=== PATIENT | male | born 1975 | race Caucasian/White ===

== ENCOUNTER 2019-10-09 09:54 | Emergency (ER) | payer OTHER ==
--- NOTE | 2019-10-09 09:59 | ERPHSYRPT ---
- History of Present Illness Time Seen by Provider: 10/09/19 09:59 Source: patient Exam Limitations: no limitations Physician History: This is a 44-year-old white male who has history of chronic back pain and presents with sudden onset of left flank pain that occurred this morning. The pain radiates down into his left groin. There is nausea but no vomiting. He has no diarrhea. He has no chest pain he has no shortness of breath. Timing/Duration: today Method of Injury: other Quality: aching (No injury) Back Pain Location: paraspinous muscles (Left flank) Severity of Pain-Max: moderate Severity of Pain-Current: moderate Modifying Factors: Improves With: nothing Associated Symptoms: nausea Previous symptoms: no prior history Allergies/Adverse Reactions: No Known Drug Allergies Allergy (Verified 10/09/19 10:05) Home Medications: Amphet Asp/Amphet/D-Amphet [Adderall 30 mg Tablet] 30 mg PO DAILY 10/09/19 [History] Atorvastatin Calcium [Lipitor 20MG Tablet] 20 mg PO DAILY 10/09/19 [History] Doxycycline Hyclate 50 mg PO DAILY 10/09/19 [History] Travel Risk - International Travel Have you traveled outside of the country in past 3 weeks: No - Coronavirus Screening Are you exhibiting any of the following symptoms?: No Close contact with a COVID-19 positive Pt in past 14-21 Days: No - Review of Systems Constitutional: No Symptoms Eyes: No Symptoms Ears, Nose, & Throat: No Symptoms Respiratory: No Symptoms Cardiac: No Symptoms Abdominal/Gastrointestinal: No Symptoms Genitourinary Symptoms: Flank Pain (Left flank) Musculoskeletal: No Symptoms Skin: No Symptoms Neurological: No Symptoms Psychological: No Symptoms Endocrine: No Symptoms Hematologic/Lymphatic: No Symptoms Immunological/Allergic: No Symptoms All Other Systems: Reviewed and Negative - Past Medical History Pertinent Past Medical History: Yes Neurological History: No Pertinent History ENT History: No Pertinent History Cardiac History: No Pertinent History Respiratory History: No Pertinent History Endocrine Medical History: No Pertinent History Musculoskeletal History: Degenerative Disk Disease, Other (Chronic back issues) GI Medical History: No Pertinent History History: No Pertinent History Psycho-Social History: No Pertinent History Male Reproductive Disorders: No Pertinent History - Past Surgical History Past Surgical History: No Neuro Surgical History: No Pertinent History Cardiac: No Pertinent History Respiratory: No Pertinent History Gastrointestinal: No Pertinent History Genitourinary: No Pertinent History Musculoskeletal: No Pertinent History Male Surgical History: No Pertinent History - Nursing Vital Signs Nursing Vital Signs: Initial Vital Signs Temperature 97.6 F 10/09/19 10:00 Pulse Rate 60 10/09/19 10:00 Respiratory Rate 20 10/09/19 10:00 Blood Pressure 158/81 10/09/19 10:00 O2 Sat by Pulse Oximetry 100 10/09/19 10:00 Pain Scale Pain Intensity [Left Lower 10 Back] Pain Intensity 0 - Physical Exam General Appearance: moderate distress, alert, anxiety Eye Exam: PERRL/EOMI, eyes nml inspection Ears, Nose, Throat Exam: normal ENT inspection, moist mucous membranes Neck Exam: normal inspection, non-tender, supple, full range of motion Respiratory Exam: normal breath sounds, lungs clear, No chest tenderness, No respiratory distress Cardiovascular Exam: regular rate/rhythm, normal heart sounds, normal peripheral pulses Gastrointestinal Exam: soft, normal bowel sounds, No tenderness Rectal Exam: not done Back Exam: normal inspection, normal range of motion, CVA tenderness (Left flank), No vertebral tenderness Extremity Exam: normal inspection, normal range of motion, pelvis stable Neurologic Exam: alert, oriented x 3, cooperative, 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, normal mood/affect, nml cerebellar function, nml station & gait, sensation nml Skin Exam: normal color, warm, dry Lymphatic Exam: No adenopathy SpO2 Interpretation: normal O2 Delivery: Room Air Ordered Tests: Active Orders 24 hr Category Date Time Status IV Insertion STAT Care 10/09/19 10:14 Active ABDOMEN AND PELVIS W/0 CONTRAS [CT] Stat Exams 10/09/19 10:15 Completed AMYLASE Stat Lab 10/09/19 10:15 Completed CBC W DIFF Stat Lab 10/09/19 10:15 Completed CMP Stat Lab 10/09/19 10:15 Completed LIPASE Stat Lab 10/09/19 10:15 Completed Lactic Acid Stat Lab 10/09/19 10:40 Completed UA W/RFX UR CULTURE Stat Lab 10/09/19 12:32 Received Medication Summary Discontinued Medications Generic Name Dose Route Start Last Admin Trade Name Freq PRN Reason Stop Dose Admin Hydromorphone HCl 1 mg 10/09/19 10:14 10/09/19 10:26 Hydromorphone 1 Mg/Ml Ampule IV 10/09/19 10:15 1 mg STAT ONE Administration Hydromorphone HCl Confirm 10/09/19 10:24 Hydromorphone 1 Mg/Ml Ampule Administered 10/09/19 10:25 Dose 1 mg .ROUTE .STK-MED ONE Hydromorphone HCl 1 mg 10/09/19 12:33 Hydromorphone 1 Mg/Ml Ampule IV 10/09/19 12:34 STAT ONE Sodium Chloride 1,000 mls @ 999 mls/hr 10/09/19 10:14 10/09/19 11:41 Sodium Chloride 0.9% 1000 Ml IV 10/09/19 11:14 Infused .Q1H1M STA Infusion Sodium Chloride Confirm 10/09/19 10:24 Sodium Chloride 0.9% 1000 Ml Administered 10/09/19 10:25 Dose 1,000 mls @ ud .ROUTE .STK-[facility] ONE Ketorolac Tromethamine 30 mg 10/09/19 10:14 10/09/19 10:35 Toradol 30 Mg Injection IV 10/09/19 10:15 30 mg STAT ONE Administration Ketorolac Tromethamine Confirm 10/09/19 10:24 Toradol 30 Mg Injection Administered 10/09/19 10:25 Dose 30 mg .ROUTE .STK-MED ONE Ondansetron HCl 4 mg 10/09/19 10:14 10/09/19 10:35 Zofran 4 Mg/2 Ml Vial IV 10/09/19 10:15 4 mg STAT ONE Administration Ondansetron HCl Confirm 10/09/19 10:24 Zofran 4 Mg/2 Ml Vial Administered 10/09/19 10:25 Dose 4 mg .ROUTE .STK-MED ONE Lab/Rad Data: Laboratory Result Diagrams 10/09/19 10:15 10/09/19 10:15 Laboratory Results 10/09/19 10/09/19 10/09/19 Range/Units 12:32 10:40 10:15 WBC (4.0-10.5) K/mm3 RBC (4.1-5.6) M/mm3 Hgb (12.5-18.0) gm/dl Hct (42-50) % MCV (78-100) fl MCH (26-32) pg MCHC (32-36) g/dl RDW (11.5-14.0) % Plt Count (150-450) K/mm3 MPV (7.5-11.0) fl Gran % (36.0-66.0) % Eos # (Auto) (0-0.5) Absolute Lymphs (auto) (1.0-4.6) Absolute Monos (auto) (0.0-1.3) Lymphocytes % (24.0-44.0) % Monocytes % (0.0-12.0) % Eosinophils % (0.00-5.0) % Basophils % (0.0-0.4) % Absolute Granulocytes (1.4-6.9) Basophils # (0-0.4) Sodium 137 (137-145) mmol/L Potassium 3.9 (3.5-5.1) mmol/L Chloride 100 (98-107) mmol/L Carbon Dioxide 29 (22-30) mmol/L Anion Gap 12.0 (5-15) MEQ/L BUN 12 (9-20) mg/dL Creatinine 1.10 (0.66-1.25) mg/dL Estimated GFR > 60.0 ML/MIN Glucose 138 H (74-106) mg/dL Lactic Acid 2.3 H (0.4-2.0) Calcium 9.2 (8.4-10.2) mg/dL Total Bilirubin 1.60 H (0.2-1.3) mg/dL AST 50 (17-59) U/L ALT 80 H (0-50) U/L Alkaline Phosphatase 70 (38-126) U/L Serum Total Protein 7.3 (6.3-8.2) g/dL Albumin 4.6 (3.5-5.0) g/dL Amylase 62 (30-110) U/L Lipase 60 (23-300) U/L Urine Color YELLOW (YELLOW) Urine Appearance CLOUDY (CLEAR) Urine pH 7.0 (5-6) Ur Specific [place] 1.026 (1.005-1.025) Urine Protein 30 (Negative) Urine Ketones NEGATIVE (NEGATIVE) Urine Blood MODERATE (0-5) Truman/ul Urine Nitrite NEGATIVE (NEGATIVE) Urine Bilirubin NEGATIVE (NEGATIVE) Urine Urobilinogen NEGATIVE (0-1) mg/dL Ur Leukocyte Esterase NEGATIVE (NEGATIVE) Urine WBC (Auto) 11-15 (0-5) /HPF Urine RBC (Auto) 26-50 (0-2) /HPF U Epithel Cells (Auto) NONE (FEW) /HPF Urine Bacteria (Auto) RARE (NEGATIVE) /HPF Urine Mucus (Auto) SLIGHT (NEGATIVE) /HPF Urine Culture Reflexed YES (NO) Urine Glucose NEGATIVE (NEGATIVE) mg/dL 10/09/19 Range/Units 10:15 WBC 8.6 (4.0-10.5) K/mm3 RBC 5.02 (4.1-5.6) M/mm3 Hgb 15.9 (12.5-18.0) gm/dl Hct 45.8 (42-50) % MCV 91.2 (78-100) fl MCH 31.7 (26-32) pg MCHC 34.7 (32-36) g/dl RDW 12.9 (11.5-14.0) % Plt Count 175 (150-450) K/mm3 MPV 11.8 H (7.5-11.0) fl Gran % 82.7 H (36.0-66.0) % Eos # (Auto) 0.02 (0-0.5) Absolute Lymphs (auto) 0.87 L (1.0-4.6) Absolute Monos (auto) 0.56 (0.0-1.3) Lymphocytes % 10.2 L (24.0-44.0) % Monocytes % 6.5 (0.0-12.0) % Eosinophils % 0.2 (0.00-5.0) % Basophils % 0.4 (0.0-0.4) % Absolute Granulocytes 7.08 H (1.4-6.9) Basophils # 0.03 (0-0.4) Sodium (137-145) mmol/L Potassium (3.5-5.1) mmol/L Chloride (98-107) mmol/L Carbon Dioxide (22-30) mmol/L Anion Gap (5-15) MEQ/L BUN (9-20) mg/dL Creatinine (0.66-1.25) mg/dL Estimated GFR ML/MIN Glucose (74-106) mg/dL Lactic Acid (0.4-2.0) Calcium (8.4-10.2) mg/dL Total Bilirubin (0.2-1.3) mg/dL AST (17-59) U/L ALT (0-50) U/L Alkaline Phosphatase (38-126) U/L Serum Total Protein (6.3-8.2) g/dL Albumin (3.5-5.0) g/dL Amylase (30-110) U/L Lipase (23-300) U/L Urine Color (YELLOW) Urine Appearance (CLEAR) Urine pH (5-6) Ur Specific [place] (1.005-1.025) Urine Protein (Negative) Urine Ketones (NEGATIVE) Urine Blood (0-5) Truman/ul Urine Nitrite (NEGATIVE) Urine Bilirubin (NEGATIVE) Urine Urobilinogen (0-1) mg/dL Ur Leukocyte Esterase (NEGATIVE) Urine WBC (Auto) (0-5) /HPF Urine RBC (Auto) (0-2) /HPF U Epithel Cells (Auto) (FEW) /HPF Urine Bacteria (Auto) (NEGATIVE) /HPF Urine Mucus (Auto) (NEGATIVE) /HPF Urine Culture Reflexed (NO) Urine Glucose (NEGATIVE) mg/dL - Progress Progress: improved, pain not gone completely, re-examined Progress Note: 10/09/19 12:01 CAT scan of the abdomen pelvis reveals a 4 to 5 mm mid ureteral stone on the left. There is partial obstructive uropathy with mild left perinephric strand ing present. Counseled pt/family regarding: lab results, diagnosis, need for follow-up, rad results - Departure Departure Disposition: Home Clinical Impression: Left ureteral calculus Condition: Stable Critical Care Time: No Referrals: KENIA BANUELOS MD [Primary Care Provider] - Additional Instructions: Drink plenty of fluids. Add ibuprofen 600 mg orally with food 3 times a day for the next 4 days. Call the urologist (names and phone numbers of urologist provided) today to make arrangements for follow-up appointment. Prescriptions: Hydrocodone/APAP 5/325 [[place] 5/325 mg] 1 each PO Q8H PRN PRN #9 tablet MDD 3 PRN Reason: Pain Ciprofloxacin [Cipro 500 MG] 500 mg PO BID #14 tablet Tamsulosin HCl 0.4 mg [Flomax 0.4 MG] 0.4 mg PO DAILY #7 cap
[2019-10-09] MEDS ORDERED: Zofran 4 MG/2 ML VIAL IV ONE (10:14)
[2019-10-09] MEDS ORDERED: Hydromorphone 1 mg/ml Ampule IV ONE ×2 (10:14→12:33)
[2019-10-09] MEDS ORDERED: Sodium Chloride 0.9% 1000 ML 1,000 ML IV STA (10:14)
[2019-10-09] MEDS ORDERED: TORAdol 30 mg Injection IV ONE (10:14)
[2019-10-09] MEDS ORDERED: Zofran 4 MG/2 ML VIAL ONE (10:24)
[2019-10-09] MEDS ORDERED: Sodium Chloride 0.9% 1000 ML 1,000 ML ONE (10:24)
[2019-10-09] MEDS ORDERED: Hydromorphone 1 mg/ml Ampule ONE ×2 (10:24→12:36)
[2019-10-09] MEDS ORDERED: TORAdol 30 mg Injection ONE (10:24)
[2019-10-09 10:39] LABS: Absolute Neutrophil Ct (ANC) 7.08 (1.4-6.9); BASOPHIL % 0.4 % (0.0-0.4); Basophil (Absolute #) 0.03 (0-0.4); Eosinophil % 0.2 % (0.00-5.0); Eosinophil (Absolute #) 0.02 (0-0.5); Hematocrit 45.8 % (42-50); Hemoglobin 15.9 gm/dl (12.5-18.0); Lymphocyte (Absolute #) 0.87 (1.0-4.6); Lymphocytes % 10.2 % (24.0-44.0); Mean Cell Volume 91.2 fl (78-100); Mean Corpuscular Hemoglobin 31.7 pg (26-32); Mean Corpuscular Hgb Concent. 34.7 g/dl (32-36); Mean Platelet Volume 11.8 fl (7.5-11.0); Monocyte (Absolute #) 0.56 (0.0-1.3); Monocytes % 6.5 % (0.0-12.0); Neutrophil % 82.7 % (36.0-66.0); Platelet Count 175 K/mm3 (150-450); Red Blood Count 5.02 M/mm3 (4.1-5.6); Red Cell Distribution Width 12.9 % (11.5-14.0); White Blood Count 8.6 K/mm3 (4.0-10.5)
[2019-10-09 10:44] LABS: ALBUMIN 4.6 g/dL (3.5-5.0); ALKALINE PHOSPHATASE 70 U/L (38-126); AMYLASE 62 U/L (30-110); BLOOD UREA NITROGEN 12 mg/dL (9-20); CHLORIDE 100 mmol/L (98-107); Calcium 9.2 mg/dL (8.4-10.2); Carbon Dioxide 29 mmol/L (22-30); Glucose 138 mg/dL (74-106); LIPASE 60 U/L (23-300); Potassium 3.9 mmol/L (3.5-5.1); SGOT/AST 50 U/L (17-59); SGPT/ALT 80 U/L (0-50); SODIUM 137 mmol/L (137-145); Total Protein 7.3 g/dL (6.3-8.2)
--- NOTE | 2019-10-09 11:09 | XRAY ---
Indication: Left flank pain. Multiple contiguous axial images obtained through the abdomen and pelvis without contrast using renal stone protocol. Comparison: None Lung bases demonstrates minimal bilateral atelectasis/scarring. No infiltrate or effusion. Heart is not enlarged. There is a 4-5 mm left mid ureter calculus, approximately L4 level. Proximal left ureter is slightly prominent and there is moderate hydronephrosis with mild perinephric stranding consistent with partial obstructive uropathy. Noncontrasted stomach and bowel loops appear nonobstructed. Normal appendix. Mild sigmoid diverticulosis. Remaining liver, gallbladder, pancreas, spleen, adrenal glands, right kidney, right ureter, bladder, and aorta appear unremarkable for noncontrast exam. Osseous structures intact with minimal/mild degenerative changes throughout the spine. Incidental L1 limbus vertebrae. No fatty or inguinal hernias. Impression: 1. 4-5 mm left midureteral calculus producing partial obstructive uropathy as detailed. 2. Sigmoid diverticulosis. 3. Remaining CT abdomen/pelvis without contrast exam is negative.
[2019-10-09 11:31] VITALS: O2SAT 98
[2019-10-09 12:30] LABS: Appearance CLOUDY (CLEAR); Bilirubin NEGATIVE (NEGATIVE); Blood MODERATE Ery/ul (0-5); Glucose NEGATIVE (NEGATIVE); Ketones NEGATIVE (NEGATIVE); Leukocyte Esterase NEGATIVE (NEGATIVE); Mucus SLIGHT /HPF (NEGATIVE); Nitrite NEGATIVE (NEGATIVE); Protein,Urine Dip 30 (Negative); RBC 26-50 /HPF (0-2); Specific Gravity 1.026 (1.005-1.025); Urobilinogen NEGATIVE mg/dL (0-1)
[2019-10-09 12:32] LABS: Bacteria RARE /HPF (NEGATIVE)
[2019-10-09 12:46] VITALS: BP 100/55; PULSE 67
== END 2019-10-09 13:07 | disposition home or self-care (01) ==
LOC: ED 09:54
DX: N20.1 Calculus of ureter (principal); M54.9 Dorsalgia, unspecified; G89.29 Other chronic pain
CPT/HCPCS: 36000; 36415; 74176; 80053; 81001; 82150; 83605; 83690; 85025; 87086; 96374; 96375; 96376; 99284; J1170; J1885; J2405